=== PATIENT | female | born 1995 | race African-American/Black ===

== ENCOUNTER 2021-09-04 04:32 | Emergency (ER) | payer MEDICAID, OTHER ==
[~2021-09-04] VITALS: Ht 172.7 cm; Wt 87.0 kg
[2021-09-04] MEDS ORDERED: MAGNESIUM/ALUMINUM HYDROXIDE/SIMETHICONE 30ML UDC PO STA (04:43)
[2021-09-04] MEDS ORDERED: MORPHINE SULFATE 4 MG/ML CPJ (NOT FOR IM USE) IV STA (04:43)
[2021-09-04] MEDS ORDERED: ONDANSETRON HCL 4MG/2ML INJ IV STA (04:43)
[2021-09-04] MEDS ORDERED: SODIUM CHLORIDE 0.9% 1,000 ML IV ONE (04:45)
[2021-09-04 05:09] LABS: CHLORIDE 110 mEq/L (98-107)
[2021-09-04 05:11] LABS: BASOPHILS % 0.3 % (0.0-2.0); EOSINOPHILS % 0.1 % (0.0-5.0); HEMATOCRIT. 40.7 % (36.0-48.0); HEMOGLOBIN. 13.7 g/dL (12.0-16.0); LYMPHOCYTES % 13.2 % (20.0-50.0); MEAN CORPUSCULAR HEMOGLOBIN 28.3 pg (28.0-32.0); MEAN CORPUSCULAR VOLUME 83.8 fL (81.0-99.0); MEAN PLATELET VOLUME 8.2 fl (7.4-10.4); MONOCYTES % 4.9 % (2.0-8.0); NEUTROPHILS % 81.5 % (40.0-76.0); PLATELET 396 x1000/uL (130-400); RED BLOOD CELL COUNT 4.85 mill/uL (4.2-5.4); RED CELL DISTRIBUTION WIDTH 14.3 % (11.6-14.6)
[2021-09-04 05:12] LABS: PROTHROMBIN TIME 10.6 sec (9.6-11.0)
[2021-09-04 05:20] LABS: HCG SCREEN NEGATIVE
[2021-09-04] MEDS ORDERED: MORPHINE SULFATE 2 MG/ML CPJ (NOT FOR IM USE) IV ONE (05:45)
[2021-09-04] MEDS ORDERED: KCL 10MEQ/50ML PREMIX 50 ML IV ONE (05:45)
[2021-09-04] MEDS ORDERED: HYDROMORPHONE HCL/PF 2MG/ML CPJ IV ONE (08:00)
[2021-09-04 10:42] VITALS: BP 111/78
== END 2021-09-04 11:02 | disposition short-term general hospital (02) ==
LOC: ER 04:32 → CANBEDREQ 22:07
DX: K85.90 Acute pancreatitis without necrosis or infection, unspecified (principal); E87.6 Hypokalemia; J45.909 Unspecified asthma, uncomplicated; Z88.8 Allergy status to other drugs, medicaments and biological substances
CPT/HCPCS: 36415; 76705; 80053; 83690; 83735; 84703; 85025; 85610; 93005; 96365; 96375; 96376; 99285; J1170; J2270; J2405; J3480; J7030